=== PATIENT | female | born 1950 | race Caucasian/White ===

== ENCOUNTER → 2017-10-25 | Outpatient (CLI) | payer MEDICARE, OTHER | END | disposition home or self-care (01) | LOC: CFH 10:21 | PROVIDERS: ATTEND Family Medicine Sports Medicine | DX: Z12.31 Encounter for screening mammogram for malignant neoplasm of breast (principal); Z85.3 Personal history of malignant neoplasm of breast | CPT/HCPCS: 77067 ==

== ENCOUNTER 2018-01-06 09:53 | Inpatient (IN) | payer MEDICARE, OTHER ==
[~2018-01-06] VITALS: Ht 182.9 cm; Wt 87.0 kg
[2018-01-06] MEDS ORDERED: PREG150C PO (10:24)
[2018-01-06] MEDS ORDERED: ALEN10TA6 PO (10:24)
[2018-01-06] MEDS ORDERED: HYDR-3307 PO (10:25)
[2018-01-06] MEDS ORDERED: SODIUM CHLORIDE FLUSH 10ML SYR IVF ONE (10:30)
[2018-01-06] MEDS ORDERED: ONDANSETRON 2MG/ML, 2ML ONE ×3 (10:40→14:03)
[2018-01-06] MEDS ORDERED: MORPHINE SULFATE 4 MG/ML, 1ML ONE (10:40)
[2018-01-06 10:55] LABS: BASOPHILS % (AUTO) 0 % (0-1); EOSINOPHILS # (AUTO) 0.07 x10^3/uL (0-0.4); EOSINOPHILS % (AUTO) 1 % (1-7); LYMPHOCYTES # (AUTO) 0.88 x10^3/uL (1-3.4); LYMPHOCYTES % (AUTO) 10 % (22-44); MD NO; MEAN CORPUSCULAR HEMOGLOBIN 33.5 pg (27.0-34.8); MEAN CORPUSCULAR HGB CONC 34.8 g/dL (32.4-35.8); MEAN CORPUSCULAR VOLUME 96.3 fL (80-100); MEAN PLATELET VOLUME 7.8 fL (7.4-10.4); MONOCYTES % (AUTO) 5 % (2-9); NEUTROPHILS # (AUTO) 7.21 x10^3/uL (1.8-6.8); NEUTROPHILS % (AUTO) 84 % (42-75); PLATELET COUNT 384 x10^3/uL (130-400); RED BLOOD COUNT 3.85 x10^6/uL (3.82-5.3); RED CELL DISTRIBUTION WIDTH 13.3 % (9.6-15.2)
[2018-01-06] MEDS ORDERED: ONDANSETRON 2MG/ML, 2ML IVPush ONE (11:00)
[2018-01-06] MEDS ORDERED: MORPHINE SULFATE 4 MG/ML, 1ML IVPush PRN (11:00)
[2018-01-06 11:04] LABS: INTERNATIONAL NORMALIZED RATIO 1.01 (0.93-1.1); PROTHROMBIN TIME 10.4 Seconds (9.6-11.5)
[2018-01-06 11:05] LABS: ALBUMIN 3.1 g/dL (3.4-5.0); ANION GAP 6 mmol/L (5-15); CALCIUM 8.3 mg/dL (8.5-10.1); CHLORIDE 99 mmol/L (98-107); CREATININE 0.52 mg/dL (0.55-1.02)
[2018-01-06 11:09] LABS: TROPONIN I < 0.015 ng/mL (0.000-0.045)
[2018-01-06] MEDS ORDERED: SODIUM CHLORIDE FLUSH 10ML SYR IVF PRN (12:00)
[2018-01-06] MEDS ORDERED: FENTANYL PF 100 MCG/2ML ONE ×6 (12:58→14:45)
[2018-01-06] MEDS ORDERED: DIPHENHYDRAMINE 50 MG/ML, 1ML IVPush PRN (13:30)
[2018-01-06] MEDS ORDERED: MEPERIDINE/PF 25MG/0.5ML IVPush PRN (13:30)
[2018-01-06] MEDS ORDERED: PROCHLORPERAZINE 5 MG/ML, 2ML IV PRN (13:30)
[2018-01-06] MEDS ORDERED: OXYcodone 5 MG/5 ML ORAL.SOL UDC PO PRN (13:30)
[2018-01-06] MEDS ORDERED: SUCCINYLCHOLINE 20 MG/ML, 10ML ONE (13:31)
[2018-01-06] MEDS ORDERED: DEXAMETHASONE 4 MG/ML, 1ML ONE ×2 (13:31→14:03)
[2018-01-06] MEDS ORDERED: PROPOFOL 10 MG/ML, 20ML ONE ×2 (13:31→14:03)
[2018-01-06] MEDS ORDERED: CEFAZOLIN 1,000 MG ONE ×2 (13:31→14:03)
[2018-01-06] MEDS ORDERED: OXYcodone 5 MG/5 ML ORAL.SOL UDC ONE (14:31)
[2018-01-06] MEDS: FENTANYL PF 100 MCG/2ML IV PRN ×3 (14:32→14:50)
[2018-01-06] MEDS ORDERED: HYDROmorphone 2 MG/ML, 1ML ONE (14:37)
[2018-01-06] MEDS: HYDROmorphone 1 MG/ML, 1ML IV PRN ×3 (14:38→14:57)
[2018-01-06 15:16] VITALS: BP 106/82
[2018-01-06] MEDS ORDERED: ACETAMINOPHEN 325 MG TABLET PO PRN (16:00)
[2018-01-06] MEDS ORDERED: HYDROmorphone 1 MG/ML, 1ML IV PRN (16:00)
[2018-01-06] MEDS ORDERED: GUAIFENESIN/COD200MG-20MG/10ML LIQUID PO PRN (16:00)
[2018-01-06] MEDS ORDERED: OXYcodone/APAP 5/325MG TABLET PO PRN (16:00)
[2018-01-06] MEDS ORDERED: CYCLOBENZAPRINE 10 MG TABLET PO PRN (16:00)
[2018-01-06] MEDS ORDERED: ZOLPIDEM 5MG TABLET PO PRN (16:00)
[2018-01-06] MEDS ORDERED: ONDANSETRON 2MG/ML, 2ML IV PRN (16:00)
[2018-01-06] MEDS ORDERED: DOCUSATE 100 MG CAPSULE PO PRN (16:00)
[2018-01-06] MEDS: NICOTINE 14MG/24 HR PATCH.TD24 TD SCH (17:10)
[2018-01-06] MEDS: KETOROLAC 30 MG/1 ML IV SCH (17:12)
[2018-01-06] MEDS: PREGABALIN 150 MG CAPSULE PO SCH ×2 (17:12→20:48)
[2018-01-06 19:44] VITALS: BP 91/57
[2018-01-06] MEDS: HYDROcodone/APAP 5/325 TABLET PO PRN (20:54)
[2018-01-06] MEDS: CEFAZOLIN PMX 1GM/50ML 50 ML IVPB SCH (21:13)
[2018-01-06 23:52] VITALS: BP 87/45
[2018-01-07] MEDS: KETOROLAC 30 MG/1 ML IV SCH ×2 (00:59→09:14)
[2018-01-07] MEDS ORDERED: SODIUM CHLORIDE 0.9% 1,000ML IVBOLUS ONE (01:00)
[2018-01-07 04:26] VITALS: BP 119/72
[2018-01-07 05:20] LABS: ANION GAP 7 mmol/L (5-15); CALCIUM 7.3 mg/dL (8.5-10.1); CHLORIDE 99 mmol/L (98-107); CREATININE 0.54 mg/dL (0.55-1.02)
[2018-01-07 05:30] LABS: BASOPHILS # (AUTO) 0.01 x10^3/uL (0-0.1); BASOPHILS % (AUTO) 0 % (0-1); EOSINOPHILS # (AUTO) 0.01 x10^3/uL (0-0.4); EOSINOPHILS % (AUTO) 0 % (1-7); LYMPHOCYTES # (AUTO) 0.67 x10^3/uL (1-3.4); LYMPHOCYTES % (AUTO) 6 % (22-44); MD NO; MEAN CORPUSCULAR HEMOGLOBIN 32.7 pg (27.0-34.8); MEAN CORPUSCULAR HGB CONC 33.8 g/dL (32.4-35.8); MEAN CORPUSCULAR VOLUME 96.8 fL (80-100); MEAN PLATELET VOLUME 7.8 fL (7.4-10.4); MONOCYTES # (AUTO) 0.75 x10^3/uL (0.2-0.8); MONOCYTES % (AUTO) 7 % (2-9); NEUTROPHILS # (AUTO) 9.91 x10^3/uL (1.8-6.8); NEUTROPHILS % (AUTO) 87 % (42-75); PLATELET COUNT 349 x10^3/uL (130-400); RED BLOOD COUNT 3.23 x10^6/uL (3.82-5.3); RED CELL DISTRIBUTION WIDTH 13.6 % (9.6-15.2)
[2018-01-07] MEDS: CEFAZOLIN PMX 1GM/50ML 50 ML IVPB SCH (05:31)
[2018-01-07] MEDS: ENOXAPARIN 40 MG/0.4 ML SQ SCH (05:35)
[2018-01-07 09:06] VITALS: BP 91/56
[2018-01-07] MEDS: PREGABALIN 150 MG CAPSULE PO SCH ×3 (09:13→20:07)
[2018-01-07 15:25] VITALS: BP 94/58
[2018-01-07] MEDS: HYDROcodone/APAP 5/325 TABLET PO PRN (17:26)
[2018-01-07] MEDS: NICOTINE 14MG/24 HR PATCH.TD24 TD SCH (17:26)
[2018-01-07 19:16] VITALS: BP 95/57
[2018-01-08] MEDS: HYDROcodone/APAP 5/325 TABLET PO PRN ×5 (00:20→20:57)
[2018-01-08 00:51] VITALS: BP 101/62
[2018-01-08 03:00] VITALS: BP 101/62
[2018-01-08] MEDS: ENOXAPARIN 40 MG/0.4 ML SQ SCH (05:36)
[2018-01-08 08:18] VITALS: BP 136/73
[2018-01-08] MEDS: PREGABALIN 150 MG CAPSULE PO SCH ×3 (08:32→20:57)
[2018-01-08 16:13] VITALS: BP 135/95
[2018-01-08] MEDS: NICOTINE 14MG/24 HR PATCH.TD24 TD SCH (17:23)
[2018-01-08 18:58] VITALS: BP 101/66
[2018-01-09 01:17] VITALS: BP 109/71
[2018-01-09] MEDS: HYDROcodone/APAP 5/325 TABLET PO PRN ×4 (01:25→17:03)
[2018-01-09] MEDS: ENOXAPARIN 40 MG/0.4 ML SQ SCH (05:35)
[2018-01-09 07:27] VITALS: BP 139/85
[2018-01-09] MEDS: PREGABALIN 150 MG CAPSULE PO SCH ×2 (08:01→16:16)
[2018-01-09] MEDS ORDERED: ENOX40SY4 SQ (15:52)
[2018-01-09] MEDS ORDERED: SENN-149 PO (15:52)
[2018-01-09] MEDS ORDERED: NICO-486 TD (15:52)
[2018-01-09] MEDS ORDERED: HYDR-3240 PO (15:52)
[2018-01-09] MEDS: NICOTINE 14MG/24 HR PATCH.TD24 TD SCH (16:15)
== END 2018-01-09 17:44 | DRG 481 ==
LOC: ED 10:08 → EDIP 11:49 → 4NOR 12:52
PROVIDERS: ADMIT Internal Medicine; ATTEND Internal Medicine
PROC: 0QS736Z Reposition Left Upper Femur with Intramedullary Internal Fixation Device, Percutaneous Approach (ICD-10-PCS; principal; 2018-01-06 14:15)
DX: S72.142A Displaced intertrochanteric fracture of left femur, initial encounter for closed fracture (principal); E87.1 Hypo-osmolality and hyponatremia; C50.919 Malignant neoplasm of unspecified site of unspecified female breast; F17.210 Nicotine dependence, cigarettes, uncomplicated; Z96.641 Presence of right artificial hip joint; W01.0XXA Fall on same level from slipping, tripping and stumbling without subsequent striking against object, initial encounter; G62.9 Polyneuropathy, unspecified; M81.0 Age-related osteoporosis without current pathological fracture; Z80.3 Family history of malignant neoplasm of breast; Z83.3 Family history of diabetes mellitus; Z85.3 Personal history of malignant neoplasm of breast; Z71.6 Tobacco abuse counseling; Z92.21 Personal history of antineoplastic chemotherapy; Z92.3 Personal history of irradiation; Y93.89 Activity, other specified; Y92.481 Parking lot as the place of occurrence of the external cause; Y99.8 Other external cause status
CPT/HCPCS: 36415; 71045; 76000; 80048; 82040; 83735; 84484; 85025; 85610; 85730; 93005; 96374; C1713; G0378; J0690; J1100; J1170; J1650; J1885; J2405; J2704; J3010; J0330; J7030

== ENCOUNTER → 2018-04-19 | Outpatient (CLI) | payer MEDICARE, OTHER ==
[~2018-04-19] MED LIST: ALEN10TA6 PO; ENOX40SY4 SQ; HYDR-3240 PO; HYDR-3307 PO; NICO-486 TD; PREG150C PO; SENN-149 PO
== END | disposition home or self-care (01) ==
LOC: CFH 09:51
PROVIDERS: ATTEND Orthopaedic Surgery
DX: M47.812 Spondylosis without myelopathy or radiculopathy, cervical region (principal); M48.02 Spinal stenosis, cervical region
CPT/HCPCS: 72141

== ENCOUNTER → 2019-12-18 | Outpatient (CLI) | payer MEDICARE, OTHER ==
[~2019-12-18] MED LIST changes: +ALEN10TA10 PO; -ALEN10TA6 PO; +HYDR-3246 PO; -HYDR-3307 PO
== END | disposition home or self-care (01) ==
LOC: CFH 09:34
PROVIDERS: ATTEND Nurse Practitioner
DX: Z12.31 Encounter for screening mammogram for malignant neoplasm of breast (principal)
CPT/HCPCS: 77063; 77067

== ENCOUNTER 2020-11-18 11:01 | Outpatient (CLI) | payer MEDICARE, OTHER ==
[~2020-11-18 11:01] MED LIST changes: +HYDR-2214 PO; -HYDR-3240 PO; -HYDR-3246 PO; +HYDR-3248 PO
[2020-11-18 13:30] LABS: BASOPHILS % (AUTO) 1 % (0-1); EOSINOPHILS % (AUTO) 1 % (1-7); LYMPHOCYTES % (AUTO) 15 % (22-44); MEAN CORPUSCULAR HEMOGLOBIN 31.3 pg (27.0-34.8); MEAN CORPUSCULAR HGB CONC 33.8 g/dL (32.4-35.8); MEAN PLATELET VOLUME 8.1 fL (7.4-10.4); MONOCYTES % (AUTO) 7 % (2-9); NEUTROPHILS % (AUTO) 76 % (42-75); PLATELET COUNT 238 x10^3/uL (130-400); RED BLOOD COUNT 4.82 x10^6/uL (3.82-5.3); RED CELL DISTRIBUTION WIDTH 13.6 % (9.6-15.2)
[2020-11-18 13:40] LABS: ALBUMIN 3.9 g/dL (3.4-5.0); ANION GAP 7 mmol/L (5-15); CALCIUM 9.1 mg/dL (8.5-10.1); CHLORIDE 98 mmol/L (98-107)
[2020-11-18 13:43] LABS: ALANINE AMINOTRANSFERASE 25 U/L (12-78); ALKALINE PHOSPHATASE 60 U/L (45-117); BILIRUBIN,TOTAL 1.1 mg/dL (0.2-1.0); CREATININE 0.51 mg/dL (0.55-1.02); TOTAL PROTEIN 7.2 g/dL (6.4-8.2)
[2020-11-18] MEDS ORDERED: SENN1TAB25 PO (15:19)
[2020-11-18] MEDS ORDERED: PREG150C PO (15:19)
[2020-11-18] MEDS ORDERED: ALEN70TA77 PO (15:19)
[2020-11-18] MEDS ORDERED: OMEG-172 PO (15:19)
[2020-11-18] MEDS ORDERED: VITA400C43 PO (15:19)
[2020-11-18] MEDS ORDERED: CALC500T14 PO (15:19)
[2020-11-18] MEDS ORDERED: ASPI81TA45 PO (15:19)
[2020-11-18] MEDS ORDERED: VITA1CAP7 PO (15:19)
[2020-11-18] MEDS ORDERED: LEVO112T2 PO (15:19)
[2020-11-18] MEDS ORDERED: CHLO25TA PO (15:19)
[2020-11-18] MEDS ORDERED: ASCO100019 PO (15:19)
[2020-11-18] MEDS ORDERED: CHOL10003 PO (15:19)
[2020-11-18] MEDS ORDERED: NICO-587 TD (15:19)
[2020-11-18] MEDS ORDERED: ALBU6.7H8 INH (15:19)
[2020-11-18] MEDS ORDERED: HYDR1TAB53 PO (15:19)
== END 2020-11-18 23:59 | disposition home or self-care (01) ==
LOC: STAR 11:01
PROVIDERS: ATTEND Orthopaedic Surgery
DX: Z01.818 Encounter for other preprocedural examination (principal); M16.12 Unilateral primary osteoarthritis, left hip; I44.4 Left anterior fascicular block
CPT/HCPCS: 36415; 80053; 85025; 87081; 93005

== ENCOUNTER 2020-11-28 07:00 | Inpatient (IN) | payer MEDICARE, OTHER ==
[~2020-11-28] VITALS: Ht 182.9 cm; Wt 61.5 kg
[2020-12-04 14:00] VITALS: BP 98/63
== END 2020-12-04 18:32 | DRG 470 ==
LOC: ORIP 08:57 → 4NE 13:43
PROVIDERS: ADMIT Orthopaedic Surgery; ATTEND Orthopaedic Surgery
PROC: 0SRB06Z Replacement of Left Hip Joint with Oxidized Zirconium on Polyethylene Synthetic Substitute, Open Approach (ICD-10-PCS; principal; 2020-11-28)
PROC: 0QP904Z Removal of Internal Fixation Device from Left Femoral Shaft, Open Approach (ICD-10-PCS; 2020-11-28)
DX: M16.12 Unilateral primary osteoarthritis, left hip (principal); Z20.822 Contact with and (suspected) exposure to COVID-19